=== PATIENT | female | born 1985 | race Two or more races ===

== ENCOUNTER 2019-05-18 07:25 | Day surgery (SDC) | payer OTHER ==
[2019-05-18] VITALS (12 sets, daily range): BP systolic 97–123; BP diastolic 51–78
[~2019-05-18] VITALS: Ht 162.6 cm; Wt 81.6 kg
--- NOTE | 2019-05-18 07:23 | Pre-Procedure Note/Attestation ---
Pre-Procedure Note/Attestation Complete Prior to Procedure Planned Procedure: left Procedure Narrative: knee diagnostic arthroscopy, possible synovectomy, chondroplasty Indications for Procedure Pre-Operative Diagnosis: left knee internal derangment Attestation I attest that I discussed the nature of the procedure; its benefits; risks and complications; and alternatives (and the risks and benefits of such alternatives ), prior to the procedure, with the patient (or the patient's legal personal banking representative). I attest that, if there was a reasonable possibility of needing a blood transfusion, the patient (or the patient's legal personal banking representative) was given the [facility] standardized written summary, pursuant to the [place] Blood Safety Act ([place] Health and Safety Code # 1645, as amended). I attest that I re-evaluated the patient just prior to the surgery and that there has been no change in the patient's H&P, except as documented below: Jason Vega MD May 18, 2019 07:23
--- NOTE | 2019-05-18 07:24 | Operative Note - PDOC ---
Operative Note Operative Note Pre-op Diagnosis: left knee internal derangment Procedure: see op report Post-op Diagnosis: same as pre-op plus Operative Findings: consistent w/pre-op dx studies Anesthesia: MAC Specimen: none Complications: none Condition: stable Estimated Blood Loss: none Implant(s) used?: No Jason Vega MD May 18, 2019 07:24
[~2019-05-18 07:25] MED LIST: ceFAZolin 1gm IVPB IVPB ONE
[2019-05-18] MEDS ORDERED: D5 1/2NS 1,000 ML IV SCH (07:30)
[2019-05-18] MEDS ORDERED: MELOXICAM15 MG PO (07:58)
--- NOTE | 2019-05-18 09:05 | Anethesia Preoperative Eval ---
Anesthesia Pre-op PMH/ROS General Date of Evaluation: May 18, 2019 Anesthesiologist: Ady ASA Score: ASA 2 Mallampati Score Class I : Soft palate, uvula, fauces, pillars visible Class II: Soft palate, uvula, fauces visible Class III: Soft palate, base of uvula visible Class IV: Only hard plate visible Mallampati Classification: Class II Surgeon: Gary Diagnosis: Left knee internal derangement Surgical Procedure: Left knee arthroscopy Anesthesia History: none Family History: no anesthesia problems Allergies: Coded Allergies: CODEINE (Verified Allergy, Severe, 05/17/19) HIVES, THROAT CLOSES HYDROCODONE (Verified Allergy, Severe, 05/17/19) HIVES, THROAT CLOSES IBUPROFEN (Verified Allergy, Severe, VOMITING, 05/17/19) OXYCODONE (Verified Allergy, Severe, 05/17/19) HIVES, THROAT CLOSES Medications: see eMAR Patient NPO?: Yes NPO Date: May 18, 2019 NPO Time: 00:00 Past Medical History Cardiovascular: Denies: HTN, CAD, [place], valve dz, arrhythmia, other Pulmonary: Denies: asthma, COPD, JOHNNY, other Gastrointestinal/Genitourinary: Denies: GERD, CRI, ESRD, other Neurologic/Psychiatric: Denies: dementia, CVA, depression/anxiety, TIA, other Endocrine: Denies: DM, hypothyroidism, steroids, other HEENT: Denies: cataract (L), cataract (R), glaucoma, [place] (L), NOO[place] (R), other Hematology/Immune: Denies: anemia, DVT, bleeding disorder, other Musculoskeletal/Integumentary: Denies: OA, RA, DJD, DDD, edema, other PSxH Narrative: Left knee patella fixation, c/s Anesthesia Pre-op Phys. Exam Physician Exam Last Vital Signs Date Time Temp Pulse Resp B/P (MAP) Pulse Ox O2 Delivery O2 Flow Rate FiO2 05/18/19 08:06 97.0 80 18 118/76 98 Room Air Constitutional: NAD Cardiovascular: RRR Respiratory: CTA Airway Exam Mallampati Score: Class II MO: full ROM: full Teeth: intact Anesthesia Pre-op A/P Labs see chart Urine Test Test 05/18/19 07:30 Urine HCG, Qualitative Negative (NEGATIVE) Studies Pre-op Studies: EKG - sr Risk Assessment & Plan Assessment: ASA II Plan: GA Status Change Before Surgery: No Pre-Antibiotics Drug: Ancef 2g Given Within 1 Hr of Incision: Yes Dariela Beach MD May 18, 2019 09:05
[2019-05-18] MEDS ORDERED: Lidocaine 1% 10mg/ml/Epi 0.005mg/ml 30ml vial INJ ONE (09:57)
[2019-05-18] MEDS ORDERED: Bupivacaine 0.25% Inj 30ml INJ ONE (09:57)
[2019-05-18] MEDS ORDERED: Ketorolac 30mg Inj ONE (09:57)
[2019-05-18] MEDS ORDERED: Kenalog-40 1ml Vial ONE (09:57)
[2019-05-18] MEDS ORDERED: Duramorph PF 5mg/10ml amp ONE (09:57)
[2019-05-18] MEDS ORDERED: Lidocaine 1% MPF 10mg/ml 5ml ONE (10:06)
[2019-05-18] MEDS ORDERED: Propofol 200mg/20ml IV ONE (10:06)
[2019-05-18] MEDS ORDERED: Midazolam 2mg/2ml Inj ONE (10:07)
[2019-05-18] MEDS ORDERED: fentaNYL 100 mcg/2 mL IV ONE (10:07)
[2019-05-18] MEDS ORDERED: Dexamethasone 4mg/ml vial ONE (10:09)
[2019-05-18] MEDS ORDERED: Metoclopramide 10mg/2ml Inj ONE (10:09)
[2019-05-18] MEDS ORDERED: LR 1000ml ONE (10:30)
[2019-05-18] MEDS ORDERED: NS Irrig 4000ml IRRIG ONE (10:30)
[2019-05-18] MEDS ORDERED: Duramorph PF 5mg/10ml amp IV ONE (10:49)
--- NOTE | 2019-05-18 12:09 | Immediate Post-Op Evaluation ---
Immediate Post-Op Evalulation Immediate Post-Op Evalulation Procedure: Left knee arthroscopy Date of Evaluation: May 18, 2019 Time of Evaluation: 12:09 IV Fluids: 800 Blood Products: 0 Estimated Blood Loss: min Urinary Output: 0 Blood Pressure Systolic: 106 Blood Pressure Diastolic: 58 Pulse Rate: 117 Respiratory Rate: 19 O2 Sat by Pulse Oximetry: 96 Temperature (Fahrenheit): 98.6 Pain Score (1-10): 0 Nausea: No Vomiting: No Complications 0 Patient Status: awake, reacts, patent, none Hydration Status: adequate Drug: Ancef 2g Given Within 1 Hr of Incision: Yes Dariela Beach MD May 18, 2019 12:09
[2019-05-18] MEDS ORDERED: LR 1000ml 1,000 ML IVLG SCH (12:10)
--- NOTE | 2019-05-18 12:10 | 48 Hour Post Anesthesia Eval ---
Post Anesthesia Evaluation Procedure: Left knee arthroscopy Date of Evaluation: May 18, 2019 Airway: patent Nausea: No Vomiting: No Pain Intensity: 0 Hydration Status: adequate Cardiopulmonary Status: at baseline Mental Status/LOC: patient returned to baseline Post-Anesthesia Complications: 0 Follow-up care needed: ready to discharge Dariela Beach MD May 18, 2019 12:10
[2019-05-18] MEDS ORDERED: DiphenhydrAMINE 50mg/ml Inj IVP PRN (12:15)
[2019-05-18] MEDS ORDERED: LORazepam Inj 2mg/ml 1ml IV PRN (12:15)
[2019-05-18] MEDS ORDERED: Midazolam 2mg/2ml Inj IVP PRN (12:15)
[2019-05-18] MEDS ORDERED: fentaNYL 100 mcg/2 mL IV PRN (12:15)
[2019-05-18] MEDS ORDERED: Hydromorphone 0.5mg/0.5ml inj IVP PRN (12:15)
--- NOTE | 2019-05-18 15:09 | Diagnostic Imaging Report ---
Indication: Knee pain Technique: Intraoperative fluoroscopic imaging submitted for archival the PACS Operating physician: Gary Total fluoroscopy time: 3.1seconds Total fluoroscopy dose: 0.15 mGy Total number of fluoroscopic images submitted to PACS: 2 Comparison: None Findings: Intraoperative fluoroscopic imaging submitted for archival the PACS. Images demonstrate removal of hardware/screws from the lateral aspect of the distal femur. Please see operative report IMPRESSION: Intraoperative fluoroscopic imaging from orthopedic surgery. Please see operative report.
--- NOTE | 2019-05-18 15:45 | Operative Note - Dictated ---
DATE OF OPERATION: 05/18/2019 PREOPERATIVE DIAGNOSES: 1. Status post ORIF left patellar fracture. 2. Left knee internal derangement. POSTOPERATIVE DIAGNOSES: 1. Grade 2 to grade 3 chondral damage, medial patellar facet. 2. Hypertrophic synovial tissue medial and lateral patellofemoral compartment. 3. Painful hardware. PROCEDURE: 1. Left knee diagnostic arthroscopy and synovectomy medial, lateral, patellofemoral compartment. 2. Gentle chondroplasty, patellofemoral compartment. 3. Removal of left knee hardware 2 screws through separate incision. 4. Revision of anterior scar incision measuring 3 cm. SURGEON: Jason Vega M.D. ANESTHESIA: MAC. INDICATION FOR PROCEDURE: The patient is a pleasant female who underwent open reduction and internal fixation of left patellar fracture. Subsequently had continued anterior knee pain despite the fact that the fracture was healed. The patient elected to undergo left knee diagnostic arthroscopy, possible synovectomy, chondroplasty, meniscectomy, and removal of the hardware. Risks, limitations, expectations were discussed in detail. All questions addressed. DESCRIPTION OF PROCEDURE: After informed consent was obtained, the patient was brought to the operating room. The patient was placed under general anesthesia. Left leg was prepped and draped in a sterile manner. Time-out was performed. Inferolateral stab incision was then made. Trocar introduced into the patellofemoral compartment. It was somewhat difficult to visualize the patellofemoral compartment. There was some grade 2 to grade 3 chondral damage, medial patellar facet. There was hypertrophic synovial tissue. Medial compartment was entered. Medial working portal was established. Synovectomy of the medial compartment, intercondylar notch, lateral compartment was performed. Medial compartment was entered, free of any meniscal chondral damage. The ACL was probed and noted to be intact. Lateral compartment was entered, free meniscal chondral damage. Camera was then repositioned in the patellofemoral compartment. Synovectomy was completed. Once that was done, a gentle chondroplasty of the medial patellar facet was performed. Once that was done, the instruments were removed. The previous incised skin was clipped out. Blunt dissection down to inferior pole of the patella was performed. The patellar tendon was peeled off the inferior portion. Two screws were removed. The patellar tendon was reattached to the inferior pole of the patella. Skin was approximated using #1 Vicryl suture, 2-0 Vicryl suture, and 3-0 Monocryl sutures. The patient was awoken and taken to recovery room with stable vital signs. ESTIMATED BLOOD LOSS: None. COMPLICATIONS: None. SPECIMENS: None. IMPLANTS: None. Jason Vega M.D. DR: CHE JOB#: [id number] CC:
== END 2019-05-18 13:50 | disposition home or self-care (01) ==
LOC: SUR 07:25
DX: M67.262 Synovial hypertrophy, not elsewhere classified, left lower leg (principal); T85.848A Pain due to other internal prosthetic devices, implants and grafts, initial encounter; X58.XXXA Exposure to other specified factors, initial encounter; Y92.9 Unspecified place or not applicable; Z88.6 Allergy status to analgesic agent
CPT/HCPCS: 13121; 20680; 29876; 73560; 76000; 81025; J0690; J1100; J1170; J1885; J2250; J2405; J2704; J2765; J3010; J3301; J3490; J7120; 94003; 94150